=== PATIENT | female | born 1980 | race Caucasian/White ===

== ENCOUNTER 2019-04-24 12:00 | Emergency (ER) | payer OTHER ==
[~2019-04-24] VITALS: Ht 160 cm; Wt 106.1 kg
--- NOTE | 2019-04-24 12:17 | NUR ---
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 Hx of same before on Lamictal. Now back to baseline", PT AAOX4, -SOB, NAD NOTED, VSS ,PENDING MD PATEL
[2019-04-24] MEDS ORDERED: LEVETIRACETAM (500MG) 1,000 MG in IV NS 0.9% 100 ML IV SCH (12:30)
[2019-04-24] MEDS ORDERED: IV NS 0.9% 1,000 ML BAG IV ONE (12:30)
[2019-04-24 13:19] VITALS: BP 146/96
== END 2019-04-24 13:39 | disposition home or self-care (01) ==
LOC: ER 12:01
DX: G40.909 Epilepsy, unspecified, not intractable, without status epilepticus (principal); R41.0 Disorientation, unspecified; I10 Essential (primary) hypertension
CPT/HCPCS: 96365; 99283; J1953; J7030